=== PATIENT | female | born 1960 | race Caucasian/White ===

== ENCOUNTER → 2020-12-23 | Outpatient (CLI) | payer MEDICARE ==
[~2020-12-23] MED LIST: ACYCLOVIR200 MG PO; ALPRAZOLAM1 MG PO; BIOTIN PO; BOTOX; BUTALB-ACETAMI1 EACH PO; ESTROVEN MOOD400 MCG PO; FAMOTIDINE20 MG PO; IRON PO; LAMOTRIGINE150 MG PO; LINZESS290 MCG PO; MELATONIN10 MG PO; MILK THISTLE175 M2 PO; PERCOCET 10-321 EACH PO; VITAMIN B12 PO; VITAMIN D PO; [UNRECOGNIZED DRUG - OTHER] PO
== END ==
LOC: US 12-16 14:30 → MAMO 12-16 14:30 → US 12-16 15:00 → MAMO 14:30
DX: N63.20 Unspecified lump in the left breast, unspecified quadrant (principal)
CPT/HCPCS: 76641-LT; 77065; G0279

== ENCOUNTER → 2021-01-08 | Outpatient (CLI) | payer MEDICARE | LOC: US 07:35 | DX: C50.912 Malignant neoplasm of unspecified site of left female breast (principal); Z17.0 Estrogen receptor positive status [ER+] | CPT/HCPCS: 77065; 88341; 88342; 88360 ==

== ENCOUNTER 2021-01-28 06:51 | Day surgery (SDC) | payer MEDICARE ==
[~2021-01-28] VITALS: Ht 152.4 cm; Wt 79.8 kg
[~2021-01-28 06:51] MED LIST changes: -PERCOCET 10-321 EACH PO
--- NOTE | 2021-01-28 17:40 | NUR ---
1543- CALLED TO PATIENT ROOM BY [employer] TRUCK DRIVER. PATIENT NOTED TO HAVE SEZIURE ACTIVITY. AT BEDSIDE. PATIENT COMING OUT OF SEIZURE WHEN I ENTERED THE ROOM. DR. MINOR NOTIFIED WITH ORDER TO GIVE HOME MEDICATION IF NOT ALREADY TAKEN TODAY. PATIENT ALREADY TOOK AM DOSE OF MEDICATION. DR. MINOR NOTIFIED. STATED TO CONTINUE TO WATCH PATIENT. STATED PATIENT HAS SEIZURES FREQUENT AT HOME WHEN UNDER STRESS. WILL CONTINUE TO MONITOR PATIENT.
[2021-01-29] MEDS ORDERED: PERCOCET 10-321 EACH PO (08:03)
== END 2021-01-29 09:38 | disposition home or self-care (01) ==
LOC: OR 06:51 → MED SURG 4 15:37 → OR 01-29 09:38
DX: C50.912 Malignant neoplasm of unspecified site of left female breast (principal); I10 Essential (primary) hypertension; K22.70 Barrett's esophagus without dysplasia; K21.9 Gastro-esophageal reflux disease without esophagitis; G43.719 Chronic migraine without aura, intractable, without status migrainosus; M81.0 Age-related osteoporosis without current pathological fracture; F32.9 Major depressive disorder, single episode, unspecified; F41.9 Anxiety disorder, unspecified; Z87.891 Personal history of nicotine dependence; Z98.84 Bariatric surgery status; Z17.0 Estrogen receptor positive status [ER+]; Z88.5 Allergy status to narcotic agent; Z79.899 Other long term (current) drug therapy
CPT/HCPCS: 88341; 88342; A9520; J0690; J1100; J1170; J2001; J2250; J2405; J2704; J2710; J2765; J3010; J7030; J7120; Q9968

== ENCOUNTER → 2021-11-10 | Outpatient (CLI) | payer MEDICARE ==
[~2021-11-10] MED LIST changes: +PERCOCET 10-321 EACH PO
== END ==
LOC: EXRD 08:12
DX: M25.551 Pain in right hip (principal); M54.50 Low back pain, unspecified; M47.816 Spondylosis without myelopathy or radiculopathy, lumbar region
CPT/HCPCS: 72100; 73502

== ENCOUNTER → 2021-11-11 | Outpatient (CLI) | payer MEDICARE | LOC: EXRD 08:33 | DX: M79.604 Pain in right leg (principal) | CPT/HCPCS: 73552 ==

== ENCOUNTER → 2021-12-06 | Outpatient (CLI) | payer MEDICARE | LOC: KOH-I 12:41 | DX: M43.17 Spondylolisthesis, lumbosacral region (principal); M54.50 Low back pain, unspecified; Z85.3 Personal history of malignant neoplasm of breast; M47.816 Spondylosis without myelopathy or radiculopathy, lumbar region; M51.86 Other intervertebral disc disorders, lumbar region; M51.87 Other intervertebral disc disorders, lumbosacral region; M48.061 Spinal stenosis, lumbar region without neurogenic claudication; M48.07 Spinal stenosis, lumbosacral region | CPT/HCPCS: 72148 ==

== ENCOUNTER → 2021-12-13 | Outpatient (CLI) | payer MEDICARE | LOC: MAMO 08:16 | DX: Z12.31 Encounter for screening mammogram for malignant neoplasm of breast (principal); C50.412 Malignant neoplasm of upper-outer quadrant of left female breast | CPT/HCPCS: 77063; 77067 ==

== ENCOUNTER → 2022-03-08 | Outpatient (CLI) | payer MEDICARE | LOC: HEART 5 10:26 | DX: I87.2 Venous insufficiency (chronic) (peripheral) (principal) | CPT/HCPCS: 93970 ==